=== PATIENT | female | born 1960 | race Caucasian/White ===

== ENCOUNTER → 2017-04-10 | Outpatient (CLI) | payer OTHER ==
--- NOTE | 2017-04-10 12:14 | REPMRS ---
Patient History The patient states she had a clinical breast exam in 01/17 Patient is postmenopausal. Family history of colorectal cancer in mother at age 54. Implants in both breasts, 1983. Took unspecified hormones for 1 month. Digital Woman Screen Mammo: April 10, 2017 - Exam #: [id number] Bilateral CC and MLO view(s) were taken. Technologist: Kayla Pierson, Technologist Prior study comparison: April 08, 2016, digital woman screen mammo performed at [facility]. December 06, 2014, digital woman screen mammo performed at [facility]. November 24, 2013, digital woman screen mammo performed at [facility]. FINDINGS: There are scattered fibroglandular densities. The visualized implant margins are smooth. Breast parenchymal density pattern is essentially symmetric. No dominant mass, clustered microcalcification, or archetectural distortion is evident on either side. No significant changes when compared with prior studies. ASSESSMENT: BI-RADS/ACR category 2 mammogram. Benign finding(s). Recommendation Routine screening mammogram of both breasts in 1 year (for women over age 40). Electronically Signed By: Elvis Waddell MD 04/10/17 [id number]
== END ==
LOC: M WHC 08:52
PROVIDERS: ATTEND Nurse Practitioner Family
DX: Z12.31 Encounter for screening mammogram for malignant neoplasm of breast (principal); M85.9 Disorder of bone density and structure, unspecified; Z78.0 Asymptomatic menopausal state; R92.8 Other abnormal and inconclusive findings on diagnostic imaging of breast

== ENCOUNTER → 2018-04-13 | Outpatient (CLI) | payer OTHER | LOC: M WHC 10:47 | DX: Z12.31 Encounter for screening mammogram for malignant neoplasm of breast (principal) | CPT/HCPCS: 77067 ==

== ENCOUNTER → 2019-04-16 | Outpatient (CLI) | payer OTHER ==
--- NOTE | 2019-04-16 09:12 | REPMRS ---
Patient History The patient states she had a clinical breast exam in 02/2019. Patient is postmenopausal. Family history of colorectal cancer at age 54 in mother. Implants in both breasts, 1983. Taking estrogen for 2 years. Took unspecified hormones for 1 month. Digital Woman Screen Mammo: April 16, 2019 - Exam #: [id number] Bilateral MLO, CC, CCID, and MLOID view(s) were taken. Technologist: Kayla Pierson, Technologist Prior study comparison: April 13, 2018, bilateral digital woman screen mammo performed at [facility]. November 24, 2013, digital woman screen mammo performed at [facility]. October 13, 2012, digital woman screen mammo performed at [facility]. October 16, 2011, bilateral bilat screen digital mammo performed at [facility]. FINDINGS: There are scattered fibroglandular densities. The visualized implant margins are smooth. Breast parenchymal density pattern is essentially symmetric. No dominant mass, clustered microcalcification, or architectural distortion is evident on either side. 3-D tomosynthesis shows no additional findings. No significant changes when compared with prior studies. Assessment: BI-RADS/ACR category 2 mammogram. Benign Findings. Recommendation Routine screening mammogram of both breasts in 1 year (for women over age 40). This patient's Lifetime Breast Cancer RIsk is estimated at 5.8 %. This mammogram was interpreted with the aid of an FDA-approved computer-aided dectection system. Electronically Signed By: Elvis Waddell MD 04/16/19 0911
--- NOTE | 2019-04-20 09:39 | DEXA ---
AP SPINE L1 - L4 0.990 -1.6 -0.4 LT FEMUR TOTAL 0.790 -1.7 -0.8 LT NECK 0.729 -2.2 -0.9 RT FEMUR TOTAL 0.785 -1.8 -0.8 RT NECK 0.717 -2.3 -1.0 TOTAL BODY TOTAL OTHER COMMENTS: There is low bone density of the spine and hips. The density of the spine has decreased 3.3% since the initial exam on 04/10/2010. The spine density has increased 2.1% since the most recent exam on 04/08/2016. The density of the left hip has decreased 4.7% since the initial exam on 04/10/2010. The density of the left hip has decreased 1.1% since the most recent exam on 04/08/2016. The density of the right hip has decreased 8.9% since the initial exam on 04/10/2010. The density of the right hip has decreased 3.4% since the most recent exam on 04/08/2016. FOLLOW-UP: Recommendation for the next bone density exam: 2 years. KEARA
== END ==
LOC: M WHC 07:53
PROVIDERS: ATTEND Nurse Practitioner Family
DX: Z12.31 Encounter for screening mammogram for malignant neoplasm of breast (principal); Z13.820 Encounter for screening for osteoporosis; M85.9 Disorder of bone density and structure, unspecified; E55.9 Vitamin D deficiency, unspecified; Z78.0 Asymptomatic menopausal state

== ENCOUNTER 2019-05-12 07:27 | Day surgery (SDC) | payer OTHER ==
[~2019-05-12] VITALS: Ht 162.6 cm; Wt 60.8 kg
[~2019-05-12 07:27] MED LIST: ATOR1TAB19 PO; CEFD1CAP8 PO; NS 1,000 ML IV ONE; OSPH1TAB PO
[2019-05-12] MEDS ORDERED: PROPOFOL 200 MG/20 ML VIAL As Ordered ONE ×2 (08:45→09:06)
--- NOTE | 2019-05-12 09:16 | ROOR ---
Patient Name: Litzy Munoz Procedure Date: 05/12/2019 8:44 AM Date of : 1960 Age: 59 Room: [facility] Gender: Female Note Status: Finalized Procedure: Total Colonoscopy to Cecum + Cold Snare Polypectomy + Hemoclips Indications: Screening in patient at increased risk: Colorectal cancer in mother before age 60 Providers: Ranjan Nino MD Referring MD: Penny SHORT MD Requesting Provider: Medicines: Monitored Anesthesia Care Complications: No immediate complications. Procedure: Pre-Anesthesia Assessment: - The heart rate, respiratory rate, oxygen saturations, blood pressure, adequacy of pulmonary ventilation, and response to care were monitored throughout the procedure. The Colonoscope was introduced through the anus and advanced to the cecum, identified by appendiceal orifice and ileocecal valve. The colonoscopy was performed without difficulty. The patient tolerated the procedure well. The quality of the bowel preparation was excellent. Findings: The perianal and digital rectal examinations were normal. Non-bleeding internal hemorrhoids were found during retroflexion. The hemorrhoids were small and Grade I (internal hemorrhoids that do not prolapse). Scattered small-mouthed diverticula were found in the recto-sigmoid colon, sigmoid colon and descending colon. A medium polyp was found in the mid ascending colon. The polyp was sessile. The polyp was removed with a cold snare. Resection and retrieval were complete. To prevent bleeding after the polypectomy, three hemostatic clips were successfully placed (MR conditional). There was no bleeding at the end of the procedure. The exam was otherwise without abnormality on direct and retroflexion views. Impression: - Non-bleeding internal hemorrhoids. - Diverticulosis in the recto-sigmoid colon, in the sigmoid colon and in the descending colon. - One medium polyp in the mid ascending colon, removed with a cold snare. Resected and retrieved. Clips (MR conditional) were placed. - The examination was otherwise normal on direct and retroflexion views. - The exam was otherwise normal to the cecum. Recommendation: - Patient has a contact number available for emergencies. The signs and symptoms of potential delayed complications were discussed with the patient. Return to normal activities tomorrow. Written discharge instructions were provided to the patient. - High fiber diet. - Discharge patient to home. - Continue present medications. - Await pathology results. - Repeat colonoscopy for surveillance based on pathology results. - Return to referring physician. - Check Portal Online for Path Results.([email or web address]) - Telephone GI clinic for pathology results in 1 week. - The findings and recommendations were discussed with the patient's family. Ranjan Nino MD Ranjan Nino MD 05/12/2019 9:15:41 AM Electronically signed by Ranjan Nino MD Number of Addenda: 0 Note Initiated On: 05/12/2019 8:44 AM Estimated Blood Loss: Estimated blood loss: none.
[2019-05-12 09:40] VITALS: BP 131/76
== END 2019-05-12 09:49 | disposition home or self-care (01) ==
LOC: M OPP 07:27
PROVIDERS: ATTEND Internal Medicine Gastroenterology
DX: K64.0 First degree hemorrhoids (principal); D12.2 Benign neoplasm of ascending colon; K57.30 Diverticulosis of large intestine without perforation or abscess without bleeding; Z79.899 Other long term (current) drug therapy; Z88.0 Allergy status to penicillin; Z12.11 Encounter for screening for malignant neoplasm of colon; Z80.0 Family history of malignant neoplasm of digestive organs

== ENCOUNTER → 2019-09-01 | Outpatient (REF) | payer OTHER ==
[~2019-09-01] MED LIST changes: -NS 1,000 ML IV ONE
[2019-09-01 11:54] LABS: BASO % 0.8 % (0.0-1.0); EOS # 0.1 10^3/uL (0.0-0.5); EOS % 1.7 % (0.0-3.0); HEMATOCRIT 42.4 % (36.0-47.0); HEMOGLOBIN 13.5 g/dl (12.0-15.5); LYMPH # 2.2 10^3/uL (1.5-5.0); LYMPH % 42.9 % (24.0-44.0); MEAN CORPUSCULAR HEMOGLOBIN 27.9 pg (27.0-33.0); MEAN CORPUSCULAR HGB CONC 31.8 g/dl (32.0-36.5); MEAN CORPUSCULAR VOLUME 87.6 fl (80.0-96.0); MONO # 0.5 10^3/uL (0.0-0.8); MONO % 10.4 % (0.0-5.0); NEUTROPHILS # 2.3 10^3/uL (1.5-8.5); PLATELET COUNT, AUTOMATED 296 10^3/uL (150-450); RED BLOOD COUNT 4.84 10^6/uL (4.00-5.40); WHITE BLOOD COUNT 5.2 10^3/uL (4.0-10.0)
[2019-09-01 11:55] LABS: FREE T4 1.05 NG/DL (0.76-1.46); THYROID STIMULATING HORMONE 2.52 uIU/ML (0.358-3.740)
== END ==
LOC: M LABDRAWC 11:29
PROVIDERS: ATTEND Internal Medicine
DX: R63.5 Abnormal weight gain (principal)

== ENCOUNTER → 2020-07-21 | Outpatient (CLI) | payer OTHER ==
--- NOTE | 2020-07-21 09:15 | REPMRS ---
Patient History The patient states she had a clinical breast exam in 06/2020. Patient is postmenopausal. Family history of colorectal cancer at age 54 in mother. Explants from both breasts, August 2019. Implants in both breasts, 1982. Took estrogen for 2 years. Took unspecified hormones for 1 month. Digital Woman Screen Mammo: July 21, 2020 - Exam #: [id number] Bilateral CC and MLO view(s) were taken. Technologist: Dior Hernandez, Technologist Prior study comparison: April 16, 2019, bilateral digital woman screen mammo performed at [facility]. April 13, 2018, bilateral digital woman screen mammo performed at [facility]. April 10, 2017, digital woman screen mammo performed at [facility]. FINDINGS: There are scattered fibroglandular densities. The Volpara volumetric breast density category is:B. The augmentation implants have been removed in the interval since the last examination. There has been no change in the appearance of the mammogram from the prior studies. There is a mild amount of scattered fibroglandular density which is fairly symmetric. There is no interval development of dominant mass, architectural distortion, or grouped microcalcification suggestive of malignancy. 3-D tomosynthesis shows no additional findings. Assessment: BI-RADS/ACR category 2 mammogram. Benign Findings. Recommendation Routine screening mammogram of both breasts in 1 year (for women over age 40). This patient's Lifetime Breast Cancer Risk is estimated at 5.6 %. This mammogram was interpreted with the aid of an FDA-approved computer-aided dectection system. Electronically Signed By: Elvis Waddell MD 07/21/20 0915
== END ==
LOC: M WHC 08:23
PROVIDERS: ATTEND Internal Medicine
DX: Z12.31 Encounter for screening mammogram for malignant neoplasm of breast (principal); Z80.0 Family history of malignant neoplasm of digestive organs

== ENCOUNTER → 2020-09-23 | Outpatient (CLI) | payer SELFPAY | LOC: M LABSMTC 07:56 | PROVIDERS: ATTEND Pediatrics | DX: Z20.828 Contact with and (suspected) exposure to other viral communicable diseases (principal) ==

== ENCOUNTER → 2020-10-03 | Outpatient (CLI) | payer SELFPAY | LOC: M LABSMTC 09:53 | PROVIDERS: ATTEND Pediatrics | DX: Z20.828 Contact with and (suspected) exposure to other viral communicable diseases (principal) ==

== ENCOUNTER → 2020-11-20 | Outpatient (CLI) | payer SELFPAY | LOC: M LABSMTC 09:35 | PROVIDERS: ATTEND Pediatrics | DX: Z20.822 Contact with and (suspected) exposure to COVID-19 (principal) ==

== ENCOUNTER → 2021-07-23 | Outpatient (CLI) | payer OTHER ==
--- NOTE | 2021-07-23 11:31 | DEXAMM ---
INDICATION: M85.80 DISORDER OF BONE. COMPARISON: Comparison study April 16, 2019. TECHNIQUE: Bone density was measured using dual-energy x-ray absorptionmetry (DEXA). FINDINGS: AP SPINE L1-L4 BMD 0.970 g/cm2 Young Adult T-Score -1.8 Age Matched Z-Score -0.4. LT FEMUR, TOTAL BMD 0.813 g/cm2 Young Adult T-Score -1.5 Age Matched Z-Score -0.4. LT NECK BMD 0.777 g/cm2 Young Adult T-Score -1.9 Age Matched Z-Score -0.5. RT FEMUR, TOTAL BMD 0.789 g/cm2 Young Adult T-Score -1.7 Age Matched Z-Score -0.6. RT NECK BMD 0.749 g/cm2 Young Adult T-Score -2.1 Age Matched Z-Score -0.7. IMPRESSION: There is low bone density of the spine. There is low bone density of the left hip. There is low bone density of the right hip. The density of the spine has decreased 5.3% since the initial exam on April 10, 2010. The density of the spine decreased 2.0% since most recent exam on April 16, 2019. The density of the left hip has decreased 1.9% since initial exam on April 10, 2010. The density of the left hip has increased 2.9% since most recent exam on April 16, 2019. The density of the right hip has decreased 8.5% since the initial exam on April 10, 2010. The density of the right hip has increased 0.5% since the most recent exam on April 16, 2019. FOLLOW-UP: Recommendation for the next bone density exam: 2 years. <Electronically signed by Elvis Waddell > 07/23/21 1127
== END ==
LOC: M WHC 09:41
PROVIDERS: ATTEND Internal Medicine
DX: Z12.31 Encounter for screening mammogram for malignant neoplasm of breast (principal); M85.89 Other specified disorders of bone density and structure, multiple sites

== ENCOUNTER → 2022-07-24 | Outpatient (CLI) | payer OTHER ==
[~2022-07-24] MED LIST changes: -CEFD1CAP8 PO; +CEFD300C41 PO
== END ==
LOC: M WHC 10:21
PROVIDERS: ATTEND Internal Medicine
DX: Z12.31 Encounter for screening mammogram for malignant neoplasm of breast (principal)

== ENCOUNTER 2023-07-21 10:31 | Day surgery (SDC) | payer MEDICARE, OTHER ==
[~2023-07-21] VITALS: Ht 162.6 cm; Wt 60.5 kg
[~2023-07-21 10:31] MED LIST changes: +NS 1,000 ML IV ONE
[2023-07-21] MEDS ORDERED: propofoL 200 MG/20 ML VIAL As Ordered ONE ×2 (11:21→11:33)
[2023-07-21] MEDS ORDERED: LIDOCAINE 2% 100MG/5ML SDV (FOR ANES.) As Ordered ONE (11:21)
[2023-07-21 11:45] VITALS: TEMP 97.5
[2023-07-21 12:05] VITALS: BP 138/79; O2SAT 96
== END 2023-07-21 12:16 | disposition home or self-care (01) ==
LOC: M OPP 10:31
PROVIDERS: ATTEND Internal Medicine Gastroenterology
DX: Z86.010 Personal history of colon polyps (principal); Z80.0 Family history of malignant neoplasm of digestive organs; D12.2 Benign neoplasm of ascending colon; K64.0 First degree hemorrhoids; Z79.02 Long term (current) use of antithrombotics/antiplatelets; Z79.818 Long term (current) use of other agents affecting estrogen receptors and estrogen levels; Z88.1 Allergy status to other antibiotic agents

== ENCOUNTER → 2024-06-08 | Outpatient (CLI) | payer MEDICARE, OTHER ==
[~2024-06-08] MED LIST changes: +CEFD1CAP9 PO; -CEFD300C41 PO; -NS 1,000 ML IV ONE
== END ==
LOC: M WHC 11:30
PROVIDERS: ATTEND Internal Medicine
DX: R59.0 Localized enlarged lymph nodes (principal)

== ENCOUNTER → 2024-07-26 | Outpatient (CLI) | payer MEDICARE, OTHER | LOC: M WHC 09:15 | PROVIDERS: ATTEND Internal Medicine | DX: Z12.31 Encounter for screening mammogram for malignant neoplasm of breast (principal); M85.89 Other specified disorders of bone density and structure, multiple sites; R92.313 Mammographic fatty tissue density, bilateral breasts ==

== ENCOUNTER → 2025-07-28 | Outpatient (CLI) | payer MEDICARE, OTHER | LOC: M WHC 12:50 | PROVIDERS: ATTEND Internal Medicine | DX: Z12.31 Encounter for screening mammogram for malignant neoplasm of breast (principal) ==